=== PATIENT | female | born 1955 | race African-American/Black ===

== ENCOUNTER 2022-04-15 12:39 | Inpatient (IN) | payer MEDICARE, MEDICAID ==
[~2022-04-15] VITALS: Ht 162.6 cm; Wt 58.8 kg
[2022-04-15] MEDS ORDERED: ALUM & MAG HYDROX-SIMETH LIQ(MAALOX) 30 ML PO ONE (13:15)
[2022-04-15] MEDS ORDERED: SODIUM CHLORIDE 0.9% 1,000 ML IVB ONE (13:15)
[2022-04-15] MEDS ORDERED: DONNATAL 5ml ORAL Elix (BELLADONNA ALK-PHENOBARB) PO ONE (13:15)
[2022-04-15 13:59] LABS: Basophils # (auto) 0.1 10 ^3/uL (0-0.2); Basophils % (auto) 0.9 % (0.0-2.0); Eosinophils # (auto) 0 10 ^3/uL (0-0.8); Eosinophils % (auto) 0.3 % (0.0-7.0); Hematocrit 29.4 % (36.0-46.0); Hemoglobin 9.6 g/dL (12.2-16.2); Lymphocytes # (auto) 0.9 10 ^3/uL (0.4-5.4); Lymphocytes % (auto) 12.3 % (10.0-50.0); Mean Corpuscular Hemoglobin 28.8 pg (28.0-32.0); Mean Corpuscular Hgb Conc. 32.5 g/dL (32.0-36.0); Mean Corpuscular Volume 88.6 fL (80.0-100.0); Monocytes # (auto) 0.4 10 ^3/uL (0-1.3); Monocytes % (auto) 4.9 % (0.0-12.0); Neutrophils # (auto) 6.2 10 ^3/uL (1.6-8.6); Neutrophils % (auto) 81.6 % (37.0-80.0); Red Blood Cells 3.32 10^6/uL (4.0-5.20); Red Cell Distribution Width 18.6 % (11.8-14.3); White Blood Cell 7.6 10^3/uL (4.4-10.8)
[2022-04-15 14:19] LABS: Albumin 2.9 g/dL (3.4-5.0); Calcium 8.8 mg/dL (8.5-10.1); Potassium 3.9 mmol/L (3.5-5.1)
[2022-04-15 14:23] LABS: BUN/Creatinine Ratio 14.9; Bilirubin, Total 1.1 mg/dL (0.2-1.0); Total Protein 7.3 g/dL (6.4-8.2)
[2022-04-15] MEDS ORDERED: ALBUTEROL SULF 2.5 MG/0.5ML(0.5%) NEB SOLN NEB ONE (16:45)
[2022-04-15] MEDS ORDERED: DexAMETHasone SOD PHOS 10MG/1ML VIAL INJ IV ONE (16:45)
[2022-04-15] MEDS ORDERED: IPRATROPIUM BROM 0.5 MG/2.5ML INH SOL NEB ONE (16:45)
[2022-04-15] MEDS ORDERED: ACETAMINOPHEN 500 MG TAB PO ONE (21:45)
[2022-04-15] MEDS ORDERED: DEXTROSE (50%) 50ML SYRG IV PRN (23:15)
[2022-04-15] MEDS ORDERED: HYDROcodone-ACET 5/325MG TAB PO PRN (23:15)
[2022-04-15] MEDS ORDERED: DOCUSATE SOD 100 MG CAP PO PRN (23:15)
[2022-04-15] MEDS ORDERED: ALBUMIN 25% 100 ML IV ONE (23:15)
[2022-04-15] MEDS ORDERED: ONDANSETRON HCL 4 MG/2 ML VIAL IV PRN (23:15)
[2022-04-16] MEDS ORDERED: NITROGLYCERIN 0.4 MG SL TAB SL PRN
[2022-04-16] MEDS: ZOLPIDEM TARTRATE 5 MG TAB PO PRN (01:38)
[2022-04-16 01:49] VITALS: BP 179/112
[2022-04-16] MEDS: ALBUTEROL SULF 2.5 MG/0.5ML(0.5%) NEB SOLN NEB PRN (02:05)
[2022-04-16] MEDS ORDERED: ALBUTEROL SULF HFA 90MCG INH 200DOSE IN SCH (06:00)
[2022-04-16] MEDS: SODIUM CHLOR 0.9% PF (SALINE LOCK) 10ML VIAL/SYR IV SCH ×3 (06:03→22:12)
[2022-04-16 06:14] LABS: Basophils # (auto) 0 10 ^3/uL (0-0.2); Basophils % (auto) 0.2 % (0.0-2.0); Eosinophils # (auto) 0 10 ^3/uL (0-0.8); Hematocrit 29.2 % (36.0-46.0); Hemoglobin 9.2 g/dL (12.2-16.2); Lymphocytes # (auto) 0.3 10 ^3/uL (0.4-5.4); Lymphocytes % (auto) 7.7 % (10.0-50.0); Mean Corpuscular Hemoglobin 28.6 pg (28.0-32.0); Mean Corpuscular Hgb Conc. 31.6 g/dL (32.0-36.0); Mean Corpuscular Volume 90.6 fL (80.0-100.0); Monocytes # (auto) 0.1 10 ^3/uL (0-1.3); Monocytes % (auto) 3.1 % (0.0-12.0); Neutrophils # (auto) 3.9 10 ^3/uL (1.6-8.6); Red Blood Cells 3.23 10^6/uL (4.0-5.20); Red Cell Distribution Width 18.3 % (11.8-14.3); White Blood Cell 4.4 10^3/uL (4.4-10.8)
[2022-04-16 06:40] LABS: Albumin 3.2 g/dL (3.4-5.0); Calcium 9.1 mg/dL (8.5-10.1); Potassium 4.4 mmol/L (3.5-5.1)
[2022-04-16 06:44] LABS: BUN/Creatinine Ratio 18.2; Bilirubin, Total 1.2 mg/dL (0.2-1.0); Total Protein 7.7 g/dL (6.4-8.2)
[2022-04-16] MEDS ORDERED: ACCU-CHEK COMFORT CURVE STRIP VI SCH (07:00)
[2022-04-16] MEDS ORDERED: InsuLIN REG 1unit/0.01ml Soln (100units/ml) SC SCH (07:00)
[2022-04-16] MEDS: ACETAMINOPHEN 325 MG TAB PO PRN ×2 (07:21→14:33)
[2022-04-16] MEDS ORDERED: FUROSEMIDE 40 MG/4 ML VIAL IV ONE (09:00)
[2022-04-16 09:37] LABS: Magnesium 2.4 mg/dL (1.6-2.6)
[2022-04-16] MEDS ORDERED: FAMOTIDINE (10MG/ML) 2ML VL IV SCH (10:00)
[2022-04-16] MEDS: CARVEDILOL 12.5 MG TAB PO SCH ×2 (10:49→22:14)
[2022-04-16] MEDS: ASPirin 81 mg TAB PO SCH (10:50)
[2022-04-16 11:45] LABS: INR 1.15 (0.9-1.15); Partial Thromboplastin Time 24.6 sec (24.6-33.4)
[2022-04-16 12:58] VITALS: BP 118/91
[2022-04-16] MEDS: methylPREDNISolone SOD SUCC 40 MG/ML VL IV SCH ×2 (14:32→22:13)
[2022-04-16] MEDS: SACUBITRIL-VALSARTAN 24mg/26mg TAB PO SCH ×2 (15:38→22:14)
[2022-04-16] MEDS: DOBUTamine 1000MCG/ML 250 ML IV SCH (16:30)
[2022-04-16 17:00] VITALS: BP 161/99
[2022-04-16] MEDS: ACCU-CHEK COMFORT CURVE STRIP VI SCH ×2 (17:00→22:23)
[2022-04-16] MEDS ORDERED: IOHEXOL 350 MG/ML 100ML IJ ONE (17:06)
[2022-04-16] MEDS: levoFLOXacin 500MG 100 ML IV SCH (17:53)
[2022-04-16] MEDS: FUROSEMIDE 40 MG/4 ML VIAL IV SCH (19:45)
[2022-04-16 20:00] VITALS: BP 142/88
[2022-04-16 22:00] VITALS: BP 162/88
[2022-04-16] MEDS ORDERED: ENOXAPARIN SOD 150 MG/1 ML SYRINGE SC SCH (22:00)
[2022-04-16] MEDS ORDERED: METF-370 PO (22:10)
[2022-04-16] MEDS ORDERED: FENO48TA12 PO (22:10)
[2022-04-16] MEDS ORDERED: CARV12.544 PO (22:10)
[2022-04-16] MEDS ORDERED: ALBU108A5 INH (22:10)
[2022-04-16] MEDS ORDERED: FLUC200T50 PO (22:10)
[2022-04-16] MEDS ORDERED: ASPI-325 PO (22:10)
[2022-04-16] MEDS ORDERED: [UNRECOGNIZED DRUG - CODE] TOP (22:10)
[2022-04-16] MEDS ORDERED: ISO60SRT PO (22:10)
[2022-04-16] MEDS ORDERED: METO25TA93 PO (22:10)
[2022-04-16] MEDS ORDERED: GABA400C11 PO (22:10)
[2022-04-16] MEDS ORDERED: ESCI-28 PO (22:10)
[2022-04-16] MEDS: ENOXAPARIN SOD 100 MG/1 ML SYRINGE SC SCH (22:14)
[2022-04-16] MEDS: ATORVASTATIN 20 MG TAB PO SCH (22:14)
[2022-04-17] VITALS (7 sets, daily range): BP systolic 142–167; BP diastolic 67–88
[2022-04-17] MEDS: DOBUTamine 1000MCG/ML 250 ML IV SCH ×2 (05:17→18:47)
[2022-04-17] MEDS: ALBUTEROL SULF 2.5 MG/0.5ML(0.5%) NEB SOLN NEB PRN (05:23)
[2022-04-17] MEDS: SODIUM CHLOR 0.9% PF (SALINE LOCK) 10ML VIAL/SYR IV SCH ×3 (05:52→21:10)
[2022-04-17] MEDS: methylPREDNISolone SOD SUCC 40 MG/ML VL IV SCH (05:52)
[2022-04-17] MEDS: FUROSEMIDE 40 MG/4 ML VIAL IV SCH ×2 (05:52→18:45)
[2022-04-17 06:28] LABS: Basophils # (auto) 0 10 ^3/uL (0-0.2); Basophils % (auto) 0.1 % (0.0-2.0); Eosinophils # (auto) 0 10 ^3/uL (0-0.8); Hematocrit 28.6 % (36.0-46.0); Hemoglobin 9.6 g/dL (12.2-16.2); Lymphocytes # (auto) 0.3 10 ^3/uL (0.4-5.4); Lymphocytes % (auto) 5.8 % (10.0-50.0); Mean Corpuscular Hemoglobin 29.7 pg (28.0-32.0); Mean Corpuscular Hgb Conc. 33.7 g/dL (32.0-36.0); Monocytes # (auto) 0.1 10 ^3/uL (0-1.3); Monocytes % (auto) 1.7 % (0.0-12.0); Neutrophils # (auto) 5.2 10 ^3/uL (1.6-8.6); Neutrophils % (auto) 92.4 % (37.0-80.0); Red Blood Cells 3.24 10^6/uL (4.0-5.20); White Blood Cell 5.6 10^3/uL (4.4-10.8)
[2022-04-17 06:40] LABS: BUN/Creatinine Ratio 17.6; Calcium 9.2 mg/dL (8.5-10.1); Potassium 3.7 mmol/L (3.5-5.1)
[2022-04-17] MEDS: ACCU-CHEK COMFORT CURVE STRIP VI SCH ×2 (06:43→11:23)
[2022-04-17] MEDS: ACETAMINOPHEN 325 MG TAB PO PRN ×2 (06:43→11:21)
[2022-04-17] MEDS ORDERED: EMPAGLIFLOZIN 10 MG TAB PO SCH (07:00)
[2022-04-17] MEDS: ENOXAPARIN SOD 100 MG/1 ML SYRINGE SC SCH (11:21)
[2022-04-17] MEDS: SACUBITRIL-VALSARTAN 24mg/26mg TAB PO SCH ×2 (11:21→21:12)
[2022-04-17] MEDS: CARVEDILOL 12.5 MG TAB PO SCH ×2 (11:22→21:11)
[2022-04-17] MEDS: ASPirin 81 mg TAB PO SCH (11:25)
[2022-04-17] MEDS: levoFLOXacin 500MG 100 ML IV SCH (11:30)
[2022-04-17 12:35] LABS: Urine Bacteria NONE SEEN /hpf (None Seen); Urine Blood 3+ /uL (Negative); Urine Specific Gravity 1.019 (1.001-1.035); Urine WBC 10 /hpf (0 - 5)
[2022-04-17] MEDS ORDERED: HYDROcodone-ACET 5/325MG TAB PO ONE (18:30)
[2022-04-17] MEDS: ATORVASTATIN 20 MG TAB PO SCH (21:12)
[2022-04-17] MEDS: ZOLPIDEM TARTRATE 5 MG TAB PO PRN (21:14)
[2022-04-17] MEDS ORDERED: HYDROcodone-ACET 5/325MG TAB PO PRN (22:45)
[2022-04-17] MEDS: hydrALAZINE HCL 20 MG/ML VL IV PRN (22:59)
[2022-04-18] VITALS (8 sets, daily range): BP systolic 104–166; BP diastolic 80–89
[2022-04-18] MEDS: SODIUM CHLOR 0.9% PF (SALINE LOCK) 10ML VIAL/SYR IV SCH ×3 (05:53→23:02)
[2022-04-18] MEDS: FUROSEMIDE 40 MG/4 ML VIAL IV SCH ×2 (06:23→18:00)
[2022-04-18] MEDS: ALBUTEROL SULF 2.5 MG/0.5ML(0.5%) NEB SOLN NEB PRN ×2 (06:29→11:32)
[2022-04-18] MEDS: ACETAMINOPHEN 325 MG TAB PO PRN ×2 (07:16→22:23)
[2022-04-18] MEDS: DOBUTamine 1000MCG/ML 250 ML IV SCH (07:57)
[2022-04-18] MEDS: SACUBITRIL-VALSARTAN 24mg/26mg TAB PO SCH (10:48)
[2022-04-18] MEDS: ASPirin 81 mg TAB PO SCH (10:48)
[2022-04-18] MEDS: CARVEDILOL 12.5 MG TAB PO SCH ×2 (10:49→19:43)
[2022-04-18] MEDS: hydrALAZINE HCL 20 MG/ML VL IV PRN (12:27)
[2022-04-18] MEDS ORDERED: PANTOPRAZOLE 40 MG/10 ML VIAL INJ IV ONE (14:00)
[2022-04-18] MEDS ORDERED: cefTRIAXone 1GM/50ML D5W 50 ML IV ONE (17:45)
[2022-04-18] MEDS ORDERED: DIGOXIN (250MCG/ML) 2 ML AMPULE IV ONE (19:30)
[2022-04-18] MEDS ORDERED: AMIODARONE HCL 150 MG in D5W 5% 100 ML IV ONE (20:00)
[2022-04-18] MEDS ORDERED: AMIODARONE HCL (50 MG/ ML) 3 ML VIAL IV ONE (20:12)
[2022-04-18] MEDS ORDERED: AMIODARONE 450mg/250ml AE 250 ML IV SCH (20:15)
[2022-04-18 21:15] LABS: Calcium 9.1 mg/dL (8.5-10.1); Magnesium 2.3 mg/dL (1.6-2.6); Potassium 3.1 mmol/L (3.5-5.1)
[2022-04-18] MEDS: ENOXAPARIN SOD 60 MG/0.6 ML SYRINGE SC SCH (21:31)
[2022-04-18] MEDS ORDERED: SODIUM CHLORIDE 0.9% 1,000 ML IV SCH (22:00)
[2022-04-18] MEDS ORDERED: POTASSIUM CHL 20 Meq TABLET PO STA (22:00)
[2022-04-18] MEDS: ATORVASTATIN 20 MG TAB PO SCH (23:41)
[2022-04-19] VITALS (8 sets, daily range): BP systolic 104–163; BP diastolic 80–91
[2022-04-19] MEDS ORDERED: AMIODARONE 450mg/250ml AE 250 ML IV SCH (02:15)
[2022-04-19] MEDS: ACETAMINOPHEN 325 MG TAB PO PRN ×2 (02:28→22:43)
[2022-04-19] MEDS: SODIUM CHLOR 0.9% PF (SALINE LOCK) 10ML VIAL/SYR IV SCH ×3 (05:33→22:42)
[2022-04-19 06:31] LABS: Basophils # (auto) 0 10 ^3/uL (0-0.2); Basophils % (auto) 0.1 % (0.0-2.0); Eosinophils # (auto) 0 10 ^3/uL (0-0.8); Hematocrit 34.7 % (36.0-46.0); Hemoglobin 11.2 g/dL (12.2-16.2); Lymphocytes # (auto) 0.7 10 ^3/uL (0.4-5.4); Lymphocytes % (auto) 4.8 % (10.0-50.0); Mean Corpuscular Hemoglobin 28.6 pg (28.0-32.0); Mean Corpuscular Hgb Conc. 32.3 g/dL (32.0-36.0); Mean Corpuscular Volume 88.5 fL (80.0-100.0); Monocytes # (auto) 1.2 10 ^3/uL (0-1.3); Monocytes % (auto) 8.3 % (0.0-12.0); Neutrophils # (auto) 12.3 10 ^3/uL (1.6-8.6); Neutrophils % (auto) 86.8 % (37.0-80.0); Red Blood Cells 3.92 10^6/uL (4.0-5.20); Red Cell Distribution Width 18.3 % (11.8-14.3); White Blood Cell 14.1 10^3/uL (4.4-10.8)
[2022-04-19 06:41] LABS: Albumin 3.3 g/dL (3.4-5.0); Calcium 9.1 mg/dL (8.5-10.1); Magnesium 2.2 mg/dL (1.6-2.6); Potassium 3.3 mmol/L (3.5-5.1)
[2022-04-19 06:43] LABS: BUN/Creatinine Ratio 24.1
[2022-04-19 06:46] LABS: Total Protein 7.2 g/dL (6.4-8.2)
[2022-04-19] MEDS: cefTRIAXone 1GM/50ML D5W 50 ML IV SCH (09:00)
[2022-04-19] MEDS: PANTOPRAZOLE 40 MG/10 ML VIAL INJ IV SCH (10:00)
[2022-04-19] MEDS: ASPirin 81 mg TAB PO SCH (12:10)
[2022-04-19] MEDS: ENOXAPARIN SOD 60 MG/0.6 ML SYRINGE SC SCH ×2 (12:11→22:43)
[2022-04-19] MEDS: CARVEDILOL 12.5 MG TAB PO SCH ×2 (12:11→22:42)
[2022-04-19] MEDS ORDERED: AMIODARONE HCL 200 MG TAB PO ONE (16:00)
[2022-04-19] MEDS ORDERED: POTASSIUM CHL 20 Meq TABLET PO ONE ×2 (16:00→16:15)
[2022-04-19 17:20] LABS: Urine Amorphous Crystal FEW /hpf (None Seen); Urine Bacteria FEW /hpf (None Seen); Urine Blood 2+ /uL (Negative); Urine Specific Gravity 1.031 (1.001-1.035); Urine WBC 30 /hpf (0 - 5)
[2022-04-19 17:37] LABS: Sodium Urine 9 mmol/L (40-220)
[2022-04-19 17:39] LABS: Creatinine, Urine 233 mg/dL (30.0-125.0); Protein, Urine 58.6 mg/dL (0.0-11.9)
[2022-04-19] MEDS ORDERED: SODIUM BICARBONATE 50ML VIAL 75 ML in D5W 5% 1,000 ML IV ONE (21:45)
[2022-04-19] MEDS: AMIODARONE HCL 200 MG TAB PO SCH (22:42)
[2022-04-19] MEDS: ATORVASTATIN 20 MG TAB PO SCH (22:43)
[2022-04-20] VITALS (8 sets, daily range): BP systolic 111–137; BP diastolic 57–74
[2022-04-20] MEDS: SODIUM CHLOR 0.9% PF (SALINE LOCK) 10ML VIAL/SYR IV SCH ×3 (05:25→22:50)
[2022-04-20 06:05] LABS: Basophils # (auto) 0.1 10 ^3/uL (0-0.2); Basophils % (auto) 0.5 % (0.0-2.0); Eosinophils # (auto) 0 10 ^3/uL (0-0.8); Eosinophils % (auto) 0.1 % (0.0-7.0); Hematocrit 35.6 % (36.0-46.0); Hemoglobin 11.6 g/dL (12.2-16.2); Lymphocytes # (auto) 0.6 10 ^3/uL (0.4-5.4); Lymphocytes % (auto) 5.8 % (10.0-50.0); Mean Corpuscular Hemoglobin 28.9 pg (28.0-32.0); Mean Corpuscular Hgb Conc. 32.5 g/dL (32.0-36.0); Mean Corpuscular Volume 88.9 fL (80.0-100.0); Monocytes # (auto) 0.8 10 ^3/uL (0-1.3); Monocytes % (auto) 7.7 % (0.0-12.0); Neutrophils # (auto) 9.4 10 ^3/uL (1.6-8.6); Neutrophils % (auto) 85.9 % (37.0-80.0); Red Blood Cells 4.01 10^6/uL (4.0-5.20); Red Cell Distribution Width 17.7 % (11.8-14.3); White Blood Cell 10.9 10^3/uL (4.4-10.8)
[2022-04-20 06:15] LABS: INR 1.15 (0.9-1.15); Partial Thromboplastin Time 28.5 sec (24.6-33.4)
[2022-04-20 06:23] LABS: Calcium 8.9 mg/dL (8.5-10.1); Magnesium 2.4 mg/dL (1.6-2.6); Potassium 3.6 mmol/L (3.5-5.1)
[2022-04-20 06:26] LABS: BUN/Creatinine Ratio 28.1
[2022-04-20] MEDS: PANTOPRAZOLE 40 MG/10 ML VIAL INJ IV SCH (09:48)
[2022-04-20] MEDS: cefTRIAXone 1GM/50ML D5W 50 ML IV SCH (09:48)
[2022-04-20] MEDS: ASPirin 81 mg TAB PO SCH (09:49)
[2022-04-20] MEDS: ACETAMINOPHEN 325 MG TAB PO PRN ×2 (09:49→18:00)
[2022-04-20] MEDS: AMIODARONE HCL 200 MG TAB PO SCH ×2 (09:49→22:50)
[2022-04-20] MEDS: ENOXAPARIN SOD 60 MG/0.6 ML SYRINGE SC SCH ×2 (09:50→22:00)
[2022-04-20] MEDS: CARVEDILOL 12.5 MG TAB PO SCH ×2 (09:50→22:52)
[2022-04-20] MEDS ORDERED: ANGIOMAX 250 MG VIAL IV ONE (15:12)
[2022-04-20] MEDS ORDERED: LIDOCAINE 2%HCL (LOCAL ANESTH.) INJ 20ML MDV ONE ×2 (15:12→15:42)
[2022-04-20] MEDS ORDERED: SODIUM CHL 0.9% 0 ML ONE (15:12)
[2022-04-20] MEDS ORDERED: MIDAZOLAM HCL 2MG/2ML 2ml VIAL (1mg/ml) ONE (15:12)
[2022-04-20] MEDS ORDERED: fentaNYL CITRATE 100 MCG/2 ML VL ONE (15:13)
[2022-04-20] MEDS ORDERED: IODIXANOL 320MG/ML 100ML BTL IV ONE (15:28)
[2022-04-20] MEDS ORDERED: IOHEXOL 350 MG/ML 100ML IJ ONE (16:06)
[2022-04-20] MEDS ORDERED: HYDROcodone-ACET 5/325MG TAB PO ONE (19:15)
[2022-04-20] MEDS: ATORVASTATIN 20 MG TAB PO SCH (22:52)
[2022-04-21 01:11] VITALS: BP 117/65
[2022-04-21] MEDS ORDERED: IBUPROFEN 800 MG TAB PO ONE (01:15)
[2022-04-21 05:48] VITALS: BP 134/79
[2022-04-21] MEDS: SODIUM CHLOR 0.9% PF (SALINE LOCK) 10ML VIAL/SYR IV SCH ×2 (06:47→14:37)
[2022-04-21] MEDS: ACETAMINOPHEN 325 MG TAB PO PRN (08:45)
[2022-04-21] MEDS: cefTRIAXone 1GM/50ML D5W 50 ML IV SCH (08:59)
[2022-04-21 09:00] VITALS: BP 137/74
[2022-04-21] MEDS: AMIODARONE HCL 200 MG TAB PO SCH (09:43)
[2022-04-21] MEDS: ASPirin 81 mg TAB PO SCH (09:43)
[2022-04-21] MEDS: CARVEDILOL 12.5 MG TAB PO SCH (09:44)
[2022-04-21] MEDS: ENOXAPARIN SOD 60 MG/0.6 ML SYRINGE SC SCH (09:44)
[2022-04-21] MEDS ORDERED: PANTOPRAZOLE 40 MG TAB PO SCH (10:00)
[2022-04-21] MEDS: HYDROmorphone HCL 2 MG/ML VL/or syr IV PRN ×2 (10:47→14:37)
[2022-04-21] MEDS ORDERED: APIX5TAB PO (14:42)
[2022-04-21] MEDS ORDERED: AMIO200T4 PO (14:42)
[2022-04-21 15:14] VITALS: BP 123/63
[2022-04-21] MEDS ORDERED: APIXABAN 5 MG TAB PO SCH (22:00)
== END 2022-04-21 16:00 | disposition home health service (06) | DRG 280 ==
LOC: ER 12:39 → EDBD 12:39 → TELE 23:55 → TELE-WESTW 04-16 09:15
PROVIDERS: ADMIT Nurse Practitioner Family; ATTEND Internal Medicine
PROC: 05HA33Z Insertion of Infusion Device into Left Brachial Vein, Percutaneous Approach (ICD-10-PCS; 2022-04-16)
PROC: B54NZZA Ultrasonography of Left Upper Extremity Veins, Guidance (ICD-10-PCS; 2022-04-16)
PROC: 05HB33Z Insertion of Infusion Device into Right Basilic Vein, Percutaneous Approach (ICD-10-PCS; 2022-04-19)
PROC: B54MZZA Ultrasonography of Right Upper Extremity Veins, Guidance (ICD-10-PCS; 2022-04-19)
PROC: 4A023N8 Measurement of Cardiac Sampling and Pressure, Bilateral, Percutaneous Approach (ICD-10-PCS; principal; 2022-04-20)
PROC: B2151ZZ Fluoroscopy of Left Heart using Low Osmolar Contrast (ICD-10-PCS; 2022-04-20)
PROC: B2111ZZ Fluoroscopy of Multiple Coronary Arteries using Low Osmolar Contrast (ICD-10-PCS; 2022-04-20)
PROC: B21F1ZZ Fluoroscopy of Other Bypass Graft using Low Osmolar Contrast (ICD-10-PCS; 2022-04-20)
PROC: B2181ZZ Fluoroscopy of Left Internal Mammary Bypass Graft using Low Osmolar Contrast (ICD-10-PCS; 2022-04-20)
DX: I13.0 Hypertensive heart and chronic kidney disease with heart failure and stage 1 through stage 4 chronic kidney disease, or unspecified chronic kidney disease (principal); I21.A1 Myocardial infarction type 2; I50.43 Acute on chronic combined systolic (congestive) and diastolic (congestive) heart failure; J96.01 Acute respiratory failure with hypoxia; N17.0 Acute kidney failure with tubular necrosis; J98.11 Atelectasis; E11.51 Type 2 diabetes mellitus with diabetic peripheral angiopathy without gangrene; Z20.822 Contact with and (suspected) exposure to COVID-19; E66.9 Obesity, unspecified; E78.5 Hyperlipidemia, unspecified; G47.00 Insomnia, unspecified; R91.8 Other nonspecific abnormal finding of lung field; D64.9 Anemia, unspecified; N18.30 Chronic kidney disease, stage 3 unspecified; E11.22 Type 2 diabetes mellitus with diabetic chronic kidney disease; E88.09 Other disorders of plasma-protein metabolism, not elsewhere classified; K83.8 Other specified diseases of biliary tract; I25.119 Atherosclerotic heart disease of native coronary artery with unspecified angina pectoris; I25.5 Ischemic cardiomyopathy; I48.0 Paroxysmal atrial fibrillation; Z79.01 Long term (current) use of anticoagulants; Z79.84 Long term (current) use of oral hypoglycemic drugs; Z88.6 Allergy status to analgesic agent; Z99.81 Dependence on supplemental oxygen; Z95.5 Presence of coronary angioplasty implant and graft; Z95.1 Presence of aortocoronary bypass graft; Z95.0 Presence of cardiac pacemaker; Z87.891 Personal history of nicotine dependence; Z68.20 Body mass index [BMI] 20.0-20.9, adult
CPT/HCPCS: 36415; 70450; 71045; 71046; 71275; 74176; 76705; 80048; 80053; 80061; 81001; 82150; 82570; 82962; 83036; 83605; 83690; 83735; 83880; 83935; 84156; 84300; 84443; 84484; 85025; 85610; 85730; 86850; 86900; 86901; 87426; 93005; 93306; 93971; 94640; 96361; 96365; 99152; 99153; C1751; C9113; G0378; J0696; J1100; J1956; J2250; J7060; P9047; Q9967

== ENCOUNTER 2022-05-08 02:10 | Inpatient (IN) | payer MEDICARE, MEDICAID ==
[~2022-05-08] VITALS: Ht 154.9 cm; Wt 56.8 kg
[~2022-05-08 02:10] MED LIST: ALBU108A5 INH; AMIO200T4 PO; APIX5TAB PO; ASPI-325 PO; CARV12.544 PO; ESCI-28 PO; FENO48TA12 PO; GABA400C11 PO; ISO60SRT PO; METF-370 PO; METO25TA93 PO; [UNRECOGNIZED DRUG - CODE] TOP
[2022-05-08] MEDS ORDERED: MORPHINE SULFATE INJ 2 MG/ml SYRG IV ONE (03:00)
[2022-05-08] MEDS ORDERED: ONDANSETRON HCL 4 MG/2 ML VIAL IV ONE (03:00)
[2022-05-08] MEDS ORDERED: KETOROLAC TROMETH 30 MG/ML 1ML VIAL IV ONE (03:30)
[2022-05-08 03:41] LABS: Basophils # (auto) 0 10 ^3/uL (0-0.2); Basophils % (auto) 0.4 % (0.0-2.0); Eosinophils # (auto) 0 10 ^3/uL (0-0.8); Eosinophils % (auto) 0.2 % (0.0-7.0); Hematocrit 25.9 % (36.0-46.0); Hemoglobin 8.1 g/dL (12.2-16.2); Lymphocytes # (auto) 0.4 10 ^3/uL (0.4-5.4); Lymphocytes % (auto) 8.3 % (10.0-50.0); Mean Corpuscular Hemoglobin 29.7 pg (28.0-32.0); Mean Corpuscular Hgb Conc. 31.3 g/dL (32.0-36.0); Mean Corpuscular Volume 95.2 fL (80.0-100.0); Monocytes # (auto) 0.5 10 ^3/uL (0-1.3); Monocytes % (auto) 10.5 % (0.0-12.0); Neutrophils % (auto) 80.6 % (37.0-80.0); Nucleated Red Blood Cells % 0.1 %; Red Blood Cells 2.72 10^6/uL (4.0-5.20)
[2022-05-08 03:47] LABS: Albumin 2.9 g/dL (3.4-5.0); Anion Gap 9 (5-15); Blood Urea Nitrogen 32 mg/dL (7-18); Calcium 8.2 mg/dL (8.5-10.1); Carbon Dioxide 20 mmol/L (21-32); Chloride 112 mmol/L (98-107); Glucose 89 mg/dL (74-106); Potassium 4.8 mmol/L (3.5-5.1); Sodium 141 mmol/L (136-145)
[2022-05-08 03:49] LABS: Alanine Aminotransferase 18 U/L (13-56); Aspartate Aminotransferase 19 U/L (15-37); BUN/Creatinine Ratio 18.3; GFR African American 37 mL/min; GFR Non-African American 31 mL/min
[2022-05-08 03:52] LABS: Alkaline Phosphatase 77 U/L (45-117); Bilirubin, Total 0.9 mg/dL (0.2-1.0); INR 1.41 (0.9-1.15); Partial Thromboplastin Time 29.6 sec (24.6-33.4)
[2022-05-08] MEDS ORDERED: HYDROmorphone HCL 2 MG/ML VL/or syr IV PRN (04:45)
[2022-05-08] MEDS ORDERED: DEXTROSE (50%) 50ML SYRG IV PRN (04:45)
[2022-05-08] MEDS ORDERED: ALBUMIN 25% 100 ML IV ONE (04:45)
[2022-05-08] MEDS: SODIUM CHLOR 0.9% PF (SALINE LOCK) 10ML VIAL/SYR IV SCH ×3 (06:09→22:13)
[2022-05-08] MEDS ORDERED: FUROSEMIDE 20 MG/2 ML VIAL IV ONE (06:45)
[2022-05-08] MEDS ORDERED: NITROGLYCERIN 0.4 MG SL TAB SL PRN (06:45)
[2022-05-08] MEDS ORDERED: MORPHINE SULFATE INJ 2 MG/ml SYRG IV PRN (06:45)
[2022-05-08] MEDS: ACCU-CHEK COMFORT CURVE STRIP VI SCH ×4 (06:55→22:13)
[2022-05-08] MEDS: InsuLIN REG 1unit/0.01ml Soln (100units/ml) SC SCH ×4 (06:55→22:00)
[2022-05-08] MEDS: FUROSEMIDE 20 MG/2 ML VIAL IV SCH (10:00)
[2022-05-08] MEDS: ASPirin 81 mg TAB PO SCH (10:09)
[2022-05-08] MEDS: FAMOTIDINE (10MG/ML) 2ML VL IV SCH (10:09)
[2022-05-08] MEDS: HYDROcodone-ACET 5/325MG TAB PO PRN ×3 (11:01→23:01)
[2022-05-08] MEDS: ATORVASTATIN 20 MG TAB PO SCH (22:06)
[2022-05-09 00:08] LABS: Urine Bacteria NONE SEEN /hpf (None Seen); Urine Blood Negative /uL (Negative); Urine Hyaline Cast MOD /lpf (0 - 2); Urine Specific Gravity 1.016 (1.001-1.035); Urine WBC 5 /hpf (0 - 5)
[2022-05-09 03:55] LABS: Basophils # (auto) 0 10 ^3/uL (0-0.2); Basophils % (auto) 0.6 % (0.0-2.0); Eosinophils # (auto) 0 10 ^3/uL (0-0.8); Eosinophils % (auto) 0.3 % (0.0-7.0); Hematocrit 27.6 % (36.0-46.0); Hemoglobin 8.5 g/dL (12.2-16.2); Lymphocytes # (auto) 0.6 10 ^3/uL (0.4-5.4); Lymphocytes % (auto) 9.5 % (10.0-50.0); Mean Corpuscular Hemoglobin 29.5 pg (28.0-32.0); Mean Corpuscular Hgb Conc. 30.7 g/dL (32.0-36.0); Mean Corpuscular Volume 96.1 fL (80.0-100.0); Monocytes # (auto) 0.7 10 ^3/uL (0-1.3); Monocytes % (auto) 11.7 % (0.0-12.0); Neutrophils # (auto) 4.6 10 ^3/uL (1.6-8.6); Neutrophils % (auto) 77.9 % (37.0-80.0); Nucleated Red Blood Cells % 0.2 %; Red Blood Cells 2.88 10^6/uL (4.0-5.20); Red Cell Distribution Width 18.4 % (11.8-14.3); White Blood Cell 5.8 10^3/uL (4.4-10.8)
[2022-05-09 04:26] LABS: Albumin 3.2 g/dL (3.4-5.0); Calcium 8.6 mg/dL (8.5-10.1); Potassium 5.1 mmol/L (3.5-5.1)
[2022-05-09 04:32] LABS: BUN/Creatinine Ratio 19.9; Bilirubin, Total 1.2 mg/dL (0.2-1.0); Total Protein 6.6 g/dL (6.4-8.2)
[2022-05-09] MEDS: SODIUM CHLOR 0.9% PF (SALINE LOCK) 10ML VIAL/SYR IV SCH ×3 (06:19→22:00)
[2022-05-09] MEDS: ACCU-CHEK COMFORT CURVE STRIP VI SCH ×4 (06:42→22:55)
[2022-05-09] MEDS: InsuLIN REG 1unit/0.01ml Soln (100units/ml) SC SCH ×4 (06:42→22:55)
[2022-05-09] MEDS: HYDROcodone-ACET 5/325MG TAB PO PRN ×2 (11:38→16:39)
[2022-05-09] MEDS: FAMOTIDINE (10MG/ML) 2ML VL IV SCH (12:01)
[2022-05-09] MEDS: ASPirin 81 mg TAB PO SCH (12:31)
[2022-05-09] MEDS: FUROSEMIDE 20 MG/2 ML VIAL IV SCH (12:33)
[2022-05-09] MEDS: ACETAMINOPHEN 325 MG TAB PO PRN (14:08)
[2022-05-09] MEDS: ONDANSETRON HCL 4 MG/2 ML VIAL IV PRN (14:11)
[2022-05-09] MEDS: ZOLPIDEM TARTRATE 5 MG TAB PO PRN (20:32)
[2022-05-09] MEDS: ATORVASTATIN 20 MG TAB PO SCH (22:55)
[2022-05-10 00:30] VITALS: BP 157/75
[2022-05-10] MEDS ORDERED: hydrALAZINE HCL 20 MG/ML VL IV ONE (01:00)
[2022-05-10] MEDS: SODIUM CHLOR 0.9% PF (SALINE LOCK) 10ML VIAL/SYR IV SCH ×3 (06:00→22:00)
[2022-05-10] MEDS: ACCU-CHEK COMFORT CURVE STRIP VI SCH ×4 (06:55→22:57)
[2022-05-10] MEDS: InsuLIN REG 1unit/0.01ml Soln (100units/ml) SC SCH ×4 (06:55→22:00)
[2022-05-10] MEDS: HYDROcodone-ACET 5/325MG TAB PO PRN ×4 (06:56→17:14)
[2022-05-10] MEDS: ONDANSETRON HCL 4 MG/2 ML VIAL IV PRN (07:38)
[2022-05-10] MEDS: FAMOTIDINE (10MG/ML) 2ML VL IV SCH (08:12)
[2022-05-10] MEDS: FUROSEMIDE 20 MG/2 ML VIAL IV SCH (08:15)
[2022-05-10] MEDS: ASPirin 81 mg TAB PO SCH (08:23)
[2022-05-10 10:07] VITALS: BP 155/73
[2022-05-10] MEDS: DOCUSATE SOD 100 MG CAP PO PRN ×2 (10:28→12:22)
[2022-05-10 13:00] VITALS: BP 159/40
[2022-05-10 17:00] VITALS: BP 166/79
[2022-05-10] MEDS: ACETAMINOPHEN 325 MG TAB PO PRN (19:36)
[2022-05-10] MEDS: ZOLPIDEM TARTRATE 5 MG TAB PO PRN (19:36)
[2022-05-10] MEDS ORDERED: LORazepam 2MG/ML-1ML VIAL IV PRN (22:30)
[2022-05-10] MEDS: ATORVASTATIN 20 MG TAB PO SCH (22:57)
[2022-05-10] MEDS: HALOPERIDOL LACTATE 5 MG/ML INJ VIAL IM PRN (22:58)
[2022-05-11] MEDS: ONDANSETRON HCL 4 MG/2 ML VIAL IV PRN (00:31)
[2022-05-11] MEDS: HYDROcodone-ACET 5/325MG TAB PO PRN ×2 (00:32→05:37)
[2022-05-11] MEDS ORDERED: cloNIDine HCL 0.1 MG TAB PO ONE (05:45)
[2022-05-11] MEDS: SODIUM CHLOR 0.9% PF (SALINE LOCK) 10ML VIAL/SYR IV SCH ×3 (06:00→22:09)
[2022-05-11] MEDS: ACCU-CHEK COMFORT CURVE STRIP VI SCH ×4 (06:45→22:09)
[2022-05-11] MEDS: InsuLIN REG 1unit/0.01ml Soln (100units/ml) SC SCH ×4 (06:46→22:00)
[2022-05-11] MEDS: HALOPERIDOL LACTATE 5 MG/ML INJ VIAL IM PRN (06:50)
[2022-05-11 09:00] VITALS: BP 123/71
[2022-05-11] MEDS: ASPirin 81 mg TAB PO SCH (09:50)
[2022-05-11] MEDS: PANTOPRAZOLE 40 MG TAB PO SCH (10:00)
[2022-05-11] MEDS: FUROSEMIDE 20 MG/2 ML VIAL IV SCH (10:00)
[2022-05-11] MEDS ORDERED: cefTRIAXone 1GM/50ML D5W 50 ML IV ONE (10:45)
[2022-05-11] MEDS ORDERED: VANCOMYCIN PER PHARMACY 0 MG IV SCH (10:45)
[2022-05-11] MEDS ORDERED: VANCOMYCIN 1GM/250ML 250 ML IV ONE (11:00)
[2022-05-11 13:00] VITALS: BP 172/93
[2022-05-11 14:03] LABS: Folate (Folic Acid) 11.84 ng/mL (5.38-24)
[2022-05-11 17:00] VITALS: BP 154/93
[2022-05-11] MEDS: ATORVASTATIN 20 MG TAB PO SCH (22:09)
[2022-05-11] MEDS: ZOLPIDEM TARTRATE 5 MG TAB PO PRN (23:44)
[2022-05-12] MEDS: HYDROcodone-ACET 5/325MG TAB PO PRN ×2 (04:58→09:07)
[2022-05-12] MEDS: SODIUM CHLOR 0.9% PF (SALINE LOCK) 10ML VIAL/SYR IV SCH ×3 (05:55→22:47)
[2022-05-12] MEDS: ACCU-CHEK COMFORT CURVE STRIP VI SCH ×4 (06:20→22:47)
[2022-05-12] MEDS: InsuLIN REG 1unit/0.01ml Soln (100units/ml) SC SCH ×4 (06:20→22:00)
[2022-05-12 06:52] LABS: Albumin 3.4 g/dL (3.4-5.0); Calcium 9.3 mg/dL (8.5-10.1)
[2022-05-12 06:54] LABS: BUN/Creatinine Ratio 19.5
[2022-05-12 07:10] LABS: Phosphorus 2.3 mg/dL (2.5-4.90)
[2022-05-12 07:20] LABS: Potassium 6.1 mmol/L (3.5-5.1)
[2022-05-12 09:00] VITALS: BP 157/81
[2022-05-12] MEDS: cefTRIAXone 1GM/50ML D5W 50 ML IV SCH (09:07)
[2022-05-12] MEDS: FUROSEMIDE 20 MG/2 ML VIAL IV SCH (09:07)
[2022-05-12] MEDS: ASPirin 81 mg TAB PO SCH (09:07)
[2022-05-12] MEDS: PANTOPRAZOLE 40 MG TAB PO SCH (09:07)
[2022-05-12] MEDS ORDERED: FUROSEMIDE 40 MG/4 ML VIAL IV ONE (10:00)
[2022-05-12] MEDS ORDERED: SODIUM BICARBONATE 8.4 % INJ 50ML VIAL IV ONE ×2 (10:00→12:45)
[2022-05-12] MEDS ORDERED: SODIUM ZIRCONIUM CYCL 10 GM PAK PO ONE (10:00)
[2022-05-12] MEDS ORDERED: CALCIUM GLUC 1,000mg/50ml-NS 50 ML IV ONE ×2 (10:00→19:30)
[2022-05-12] MEDS ORDERED: VANCOMYCIN 1GM/250ML 250 ML IV SCH (11:00)
[2022-05-12 13:00] VITALS: BP 148/97
[2022-05-12] MEDS: SODIUM ZIRCONIUM CYCL 10 GM PAK PO SCH ×2 (13:28→21:07)
[2022-05-12] MEDS ORDERED: ALBUMIN 5% 50 ML IV ONE (13:30)
[2022-05-12 17:00] VITALS: BP 157/86
[2022-05-12 18:57] LABS: Anion Gap 25 (5-15); Carbon Dioxide 13 mmol/L (21-32); Chloride 107 mmol/L (98-107); Sodium 145 mmol/L (136-145)
[2022-05-12 18:58] LABS: Blood Urea Nitrogen 44 mg/dL (7-18); Calcium 9.5 mg/dL (8.5-10.1); Glucose 82 mg/dL (74-106)
[2022-05-12 18:59] LABS: BUN/Creatinine Ratio 19.6; GFR African American 28 mL/min; GFR Non-African American 23 mL/min
[2022-05-12 19:04] LABS: Potassium 6.2 mmol/L (3.5-5.1)
[2022-05-12] MEDS ORDERED: FUROSEMIDE 20 MG/2 ML VIAL IV ONE (19:30)
[2022-05-12] MEDS ORDERED: SODIUM BICARBONATE 8.4% INJ 50ML SYRINGE IV ONE (19:30)
[2022-05-12] MEDS ORDERED: SODIUM CHLORIDE 0.9% 1,000 ML IV ONE (19:30)
[2022-05-12] MEDS ORDERED: ALBUTEROL SULF 2.5 MG/0.5ML(0.5%) NEB SOLN NEB ONE (19:30)
[2022-05-12] MEDS ORDERED: ALBUTEROL SULF 2.5 MG/0.5ML(0.5%) NEB SOLN ONE (19:54)
[2022-05-12 21:40] VITALS: BP 153/57
[2022-05-12] MEDS: ATORVASTATIN 20 MG TAB PO SCH (22:00)
[2022-05-12] MEDS ORDERED: AMIODARONE HCL (50 MG/ ML) 3 ML VIAL IV ONE (22:05)
[2022-05-12] MEDS ORDERED: AMIODARONE 450mg/250ml AE 250 ML IV SCH (22:15)
[2022-05-12] MEDS ORDERED: AMIODARONE HCL 150 MG in D5W 5% 100 ML IV ONE (22:15)
[2022-05-13] MEDS ORDERED: AMIODARONE HCL 75 MG in D5W 5% 100 ML IV ONE (01:00)
[2022-05-13] MEDS ORDERED: AMIODARONE HCL (50 MG/ ML) 3 ML VIAL IV ONE (01:04)
[2022-05-13 02:00] LABS: Urine Bacteria FEW /hpf (None Seen); Urine Blood 3+ /uL (Negative); Urine Hyaline Cast MOD /lpf (0 - 2); Urine Mucus FEW (None Seen); Urine Specific Gravity 1.015 (1.001-1.035); Urine WBC 13 /hpf (0 - 5)
[2022-05-13 02:16] LABS: Protein, Urine 103.7 mg/dL (0.0-11.9)
[2022-05-13] MEDS ORDERED: AMIODARONE 450mg/250ml AE 250 ML IV SCH (04:15)
[2022-05-13 05:00] VITALS: BP 131/82
[2022-05-13] MEDS: SODIUM CHLOR 0.9% PF (SALINE LOCK) 10ML VIAL/SYR IV SCH ×3 (06:16→22:00)
[2022-05-13] MEDS: InsuLIN REG 1unit/0.01ml Soln (100units/ml) SC SCH ×4 (06:16→22:00)
[2022-05-13] MEDS: ACCU-CHEK COMFORT CURVE STRIP VI SCH ×4 (06:16→22:00)
[2022-05-13 06:23] LABS: BUN/Creatinine Ratio 20.7; Calcium 9.8 mg/dL (8.5-10.1); Potassium 5.3 mmol/L (3.5-5.1)
[2022-05-13] MEDS: SODIUM ZIRCONIUM CYCL 10 GM PAK PO SCH ×3 (06:27→22:00)
[2022-05-13 08:54] VITALS: BP 139/90
[2022-05-13] MEDS: PANTOPRAZOLE 40 MG TAB PO SCH (09:47)
[2022-05-13] MEDS: ASPirin 81 mg TAB PO SCH (09:47)
[2022-05-13] MEDS: FUROSEMIDE 20 MG/2 ML VIAL IV SCH (09:48)
[2022-05-13] MEDS: cefTRIAXone 1GM/50ML D5W 50 ML IV SCH (09:48)
[2022-05-13 13:00] VITALS: BP 156/79
[2022-05-13] MEDS ORDERED: CARVEDILOL 12.5 MG TAB PO ONE (14:15)
[2022-05-13] MEDS ORDERED: AMIODARONE HCL 200 MG TAB PO ONE (14:15)
[2022-05-13 17:25] LABS: Partial Thromboplastin Time 32.6 sec (24.6-33.4)
[2022-05-13 17:53] LABS: INR 6.13 (0.9-1.15)
[2022-05-13] MEDS ORDERED: PHYTONADIONE (VIT K)10 MG/ML 1ML VIAL SUBCUT ONE (18:15)
[2022-05-13 22:00] VITALS: BP 126/75
[2022-05-13] MEDS: CARVEDILOL 12.5 MG TAB PO SCH (22:00)
[2022-05-13] MEDS: ATORVASTATIN 20 MG TAB PO SCH (22:00)
[2022-05-13] MEDS: AMIODARONE HCL 200 MG TAB PO SCH (22:00)
[2022-05-13 23:11] LABS: Partial Thromboplastin Time 33.5 sec (24.6-33.4)
[2022-05-13 23:29] LABS: INR 6.67 (0.9-1.15)
[2022-05-14] MEDS: SODIUM ZIRCONIUM CYCL 10 GM PAK PO SCH ×2 (01:48→06:00)
[2022-05-14 05:00] VITALS: BP 142/70
[2022-05-14] MEDS: InsuLIN REG 1unit/0.01ml Soln (100units/ml) SC SCH ×4 (05:57→21:52)
[2022-05-14] MEDS: SODIUM CHLOR 0.9% PF (SALINE LOCK) 10ML VIAL/SYR IV SCH ×3 (06:00→21:47)
[2022-05-14] MEDS: ACCU-CHEK COMFORT CURVE STRIP VI SCH ×4 (06:34→21:51)
[2022-05-14 07:35] LABS: INR 6.79 (0.9-1.15)
[2022-05-14 08:25] LABS: BUN/Creatinine Ratio 32.2; Calcium 8.7 mg/dL (8.5-10.1); Potassium 4.1 mmol/L (3.5-5.1)
[2022-05-14] MEDS: cefTRIAXone 1GM/50ML D5W 50 ML IV SCH (08:38)
[2022-05-14] MEDS: FUROSEMIDE 20 MG/2 ML VIAL IV SCH (08:38)
[2022-05-14] MEDS: CARVEDILOL 12.5 MG TAB PO SCH ×2 (08:39→22:00)
[2022-05-14] MEDS: PANTOPRAZOLE 40 MG TAB PO SCH (08:39)
[2022-05-14] MEDS: AMIODARONE HCL 200 MG TAB PO SCH ×2 (08:40→22:00)
[2022-05-14 09:00] VITALS: BP 144/72
[2022-05-14 13:00] VITALS: BP 144/71
[2022-05-14 17:00] VITALS: BP 141/63
[2022-05-14 22:00] VITALS: BP 142/63
[2022-05-14] MEDS: ATORVASTATIN 20 MG TAB PO SCH (22:07)
[2022-05-15 05:00] VITALS: BP 142/59
[2022-05-15] MEDS: SODIUM CHLOR 0.9% PF (SALINE LOCK) 10ML VIAL/SYR IV SCH ×2 (05:41→12:47)
[2022-05-15 05:42] LABS: Eosinophils # (auto) 0 10 ^3/uL (0-0.8)
[2022-05-15] MEDS: InsuLIN REG 1unit/0.01ml Soln (100units/ml) SC SCH ×2 (05:44→11:30)
[2022-05-15] MEDS: ACCU-CHEK COMFORT CURVE STRIP VI SCH ×2 (05:44→11:30)
[2022-05-15 05:50] LABS: Potassium 3.1 mmol/L (3.5-5.1)
[2022-05-15 05:52] LABS: Partial Thromboplastin Time 37.5 sec (24.6-33.4)
[2022-05-15 05:54] LABS: BUN/Creatinine Ratio 36.3; Calcium 8.1 mg/dL (8.5-10.1)
[2022-05-15 06:01] LABS: INR 4.23 (0.9-1.15)
[2022-05-15 08:11] LABS: Basophils # (auto) 0 10 ^3/uL (0-0.2); Basophils % (auto) 0.3 % (0.0-2.0); Eosinophils % (auto) 0.1 % (0.0-7.0); Hematocrit 28.3 % (36.0-46.0); Hemoglobin 8.9 g/dL (12.2-16.2); Lymphocytes # (auto) 0.2 10 ^3/uL (0.4-5.4); Lymphocytes % (auto) 2.1 % (10.0-50.0); Mean Corpuscular Hemoglobin 29.3 pg (28.0-32.0); Mean Corpuscular Hgb Conc. 31.6 g/dL (32.0-36.0); Mean Corpuscular Volume 92.8 fL (80.0-100.0); Monocytes # (auto) 0.9 10 ^3/uL (0-1.3); Monocytes % (auto) 8.2 % (0.0-12.0); Neutrophils # (auto) 9.8 10 ^3/uL (1.6-8.6); Neutrophils % (auto) 89.3 % (37.0-80.0); Nucleated Red Blood Cells % 0.2 %; Red Blood Cells 3.05 10^6/uL (4.0-5.20); Red Cell Distribution Width 18.9 % (11.8-14.3)
[2022-05-15 09:00] VITALS: BP 106/68
[2022-05-15] MEDS: FUROSEMIDE 20 MG/2 ML VIAL IV SCH (09:16)
[2022-05-15] MEDS: cefTRIAXone 1GM/50ML D5W 50 ML IV SCH (09:16)
[2022-05-15] MEDS: PANTOPRAZOLE 40 MG TAB PO SCH (09:17)
[2022-05-15] MEDS: CARVEDILOL 12.5 MG TAB PO SCH (09:17)
[2022-05-15] MEDS: AMIODARONE HCL 200 MG TAB PO SCH (09:17)
[2022-05-15] MEDS ORDERED: POTASSIUM EFFERVESENT TAB 25 MEQ PO ONE (09:45)
[2022-05-15] MEDS ORDERED: FURO1TAB33 PO (09:56)
[2022-05-15 13:00] VITALS: BP 148/58
[2022-05-15 17:00] VITALS: BP 106/68
[2022-05-16] MEDS ORDERED: FUROSEMIDE 20 MG TAB PO SCH (10:00)
== END 2022-05-15 15:35 | disposition hospice, home (50) | DRG 291 ==
LOC: EDUNIT# 02:10 → ER 02:10 → EDBD 02:10 → TELE 06:40 → TELE-WESTW 05-09 22:00
PROVIDERS: ADMIT Nurse Practitioner Family; ATTEND Family Medicine
PROC: 05HB33Z Insertion of Infusion Device into Right Basilic Vein, Percutaneous Approach (ICD-10-PCS; principal; 2022-05-11)
PROC: B54MZZA Ultrasonography of Right Upper Extremity Veins, Guidance (ICD-10-PCS; 2022-05-11)
DX: I13.0 Hypertensive heart and chronic kidney disease with heart failure and stage 1 through stage 4 chronic kidney disease, or unspecified chronic kidney disease (principal); G93.41 Metabolic encephalopathy; I50.43 Acute on chronic combined systolic (congestive) and diastolic (congestive) heart failure; J44.1 Chronic obstructive pulmonary disease with (acute) exacerbation; N17.9 Acute kidney failure, unspecified; R18.8 Other ascites; E87.20 Acidosis, unspecified; N39.0 Urinary tract infection, site not specified; R64 Cachexia; E66.9 Obesity, unspecified; Z20.822 Contact with and (suspected) exposure to COVID-19; I25.10 Atherosclerotic heart disease of native coronary artery without angina pectoris; E88.09 Other disorders of plasma-protein metabolism, not elsewhere classified; D63.8 Anemia in other chronic diseases classified elsewhere; E11.51 Type 2 diabetes mellitus with diabetic peripheral angiopathy without gangrene; E78.5 Hyperlipidemia, unspecified; E87.5 Hyperkalemia; F03.90 Unspecified dementia, unspecified severity, without behavioral disturbance, psychotic disturbance, mood disturbance, and anxiety; I25.5 Ischemic cardiomyopathy; I48.0 Paroxysmal atrial fibrillation; Z79.01 Long term (current) use of anticoagulants; Z79.84 Long term (current) use of oral hypoglycemic drugs; Z86.73 Personal history of transient ischemic attack (TIA), and cerebral infarction without residual deficits; Z87.891 Personal history of nicotine dependence; Z95.1 Presence of aortocoronary bypass graft; I25.2 Old myocardial infarction; Z88.6 Allergy status to analgesic agent; Z95.810 Presence of automatic (implantable) cardiac defibrillator; Z68.25 Body mass index [BMI] 25.0-25.9, adult
CPT/HCPCS: 36415; 36600; 70450; 71045; 74176; 76775; 80048; 80053; 80069; 80202; 81001; 82570; 82607; 82746; 82805; 82962; 83690; 83880; 84132; 84156; 84300; 84443; 84484; 85025; 85610; 85730; 86850; 86900; 86901; 87040; 87081; 87086; 87426; 93005; 93306; 93886; 94640; 96365; 96375; 97110; 97116; 97163; 97530; G0378; J0696; J1815; J1885; J2405; J3430; J3490; J7060; P9047